=== PATIENT | female | born 1980 | race American Indian/Alaskan Native ===

== ENCOUNTER 2017-09-21 09:06 | Emergency (ER) | payer MEDICAID, OTHER ==
[2017-09-21 10:35] VITALS: BP 104/72
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
[2017-09-21] MEDS: FLEXERIL PO ONE (12:26)
[2017-09-21] MEDS: MOTRIN PO ONE (12:27)
== END 2017-09-21 13:02 | disposition home or self-care (01) ==
LOC: ED 09:06
DX: M79.1 Myalgia (principal); F17.200 Nicotine dependence, unspecified, uncomplicated; V89.0XXA Person injured in unspecified motor-vehicle accident, nontraffic, initial encounter; Y93.89 Activity, other specified; Y92.89 Other specified places as the place of occurrence of the external cause; Y99.8 Other external cause status
CPT/HCPCS: 99282

== ENCOUNTER 2017-10-26 16:56 | Emergency (ER) | payer OTHER ==
[2017-10-27] MEDS ORDERED: MOTRIN PO ONE (00:14)
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
[2017-10-27 06:04] VITALS: BP 117/76
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
== END 2017-10-27 02:45 | disposition home or self-care (01) ==
LOC: ED 16:56
DX: S63.591A Other specified sprain of right wrist, initial encounter (principal); X58.XXXA Exposure to other specified factors, initial encounter; Y93.89 Activity, other specified; Y92.89 Other specified places as the place of occurrence of the external cause; Y99.8 Other external cause status; V89.2XXA Person injured in unspecified motor-vehicle accident, traffic, initial encounter
CPT/HCPCS: 72040; 72100

== ENCOUNTER 2019-07-25 21:06 | Emergency (ER) | payer OTHER ==
[2019-07-25 21:37] VITALS: BP 117/76
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
--- NOTE | 2019-07-25 22:46 | XRay Report ---
LUMBAR SPINE 3 VIEWS. INDICATION / CLINICAL INFORMATION: low back pain COMPARISON: None available. FINDINGS: BONES / JOINT(S): No acute fracture or subluxation. No significant arthritis. SOFT TISSUES: No significant abnormality. ADDITIONAL FINDINGS: None. Signer Name: Valentino Hong MD Signed: 07/25/2019 10:42 PM Workstation Name: [id number]
[2019-07-26] MEDS ORDERED: ZOFRAN ODT PO STA (00:14)
[2019-07-26] MEDS ORDERED: PERCOCET 5/325 PO STA (00:14)
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
== END 2019-07-26 04:00 | disposition home or self-care (01) ==
LOC: ED 21:06
DX: S09.90XA Unspecified injury of head, initial encounter (principal); M79.10 Myalgia, unspecified site; M54.5 Low back pain; M54.2 Cervicalgia; E66.9 Obesity, unspecified; Z68.37 Body mass index [BMI] 37.0-37.9, adult; F17.200 Nicotine dependence, unspecified, uncomplicated; Z79.1 Long term (current) use of non-steroidal anti-inflammatories (NSAID); Z79.899 Other long term (current) drug therapy; V89.2XXA Person injured in unspecified motor-vehicle accident, traffic, initial encounter; Y93.89 Activity, other specified; Y92.488 Other paved roadways as the place of occurrence of the external cause; Y99.8 Other external cause status
CPT/HCPCS: 70450; 72100; Q0162

== ENCOUNTER 2020-06-06 06:51 | Emergency (ER) | payer SELFPAY ==
[2020-06-06 07:01] VITALS: BP 109/71
[2020-06-06] MEDS ORDERED: HYDROcodone/ACETAMINOPHEN 10-325MG TAB PO ONE (07:31)
[2020-06-06 07:42] LABS: Basophils % (Auto) 0.6 % (0.0-1.8); Eosinophils # (Auto) 0.2 K/mm3 (0.0-0.4); Eosinophils % (Auto) 1.9 % (0.0-4.3); Hematocrit 34.2 % (30.3-42.9); Hemoglobin 10.9 gm/dl (10.1-14.3); Lymphocytes % (Auto) 25.4 % (13.4-35.0); Mean Corpuscular HGB Conc 32 % (30-34); Mean Corpuscular Volume 76 fl (79-97); Monocytes # (Auto) 0.5 K/mm3 (0.0-0.8); Monocytes % (Auto) 6.7 % (0.0-7.3); Platelet Count 294 K/mm3 (140-440); Red Blood Count 4.53 M/mm3 (3.65-5.03); Red Cell Distribution Width 18.6 % (13.2-15.2)
--- NOTE | 2020-06-06 08:42 | Emergency Department Report ---
ED Abdominal Pain HPI - General Chief Complaint: Abdominal Pain Stated Complaint: LEFT SIDE/ABDOMINAL PAIN, FEELING FAINT Time Seen by Provider: 06/06/20 07:05 Source: patient Mode of arrival: Ambulatory Limitations: No Limitations - History of Present Illness Initial Comments: This is a 39-year-old female nontoxic, well nourished in appearance, no acute signs of distress presents to the ED with c/o of left flank pain with radiation to left abdomen area. Patient denies any n/v. Patient denies chest pain, short of breath, fever, hemoptysis, blood in stool, chills, headache, stiff neck, numbness or tingling. Patient denies any diarrhea or constipation. Denies any blood in stool. Patient denies any recent travels. MD Complaint: abdominal pain, flank pain -: days(s) Location: L flank Radiation: other (abdomen) Severity: moderate Severity scale (0 -10): 8 Quality: cramping, aching Consistency: constant Improves With: nothing Worsens With: nothing Associated Symptoms: denies other symptoms. denies: nausea, vomiting, diarrhea, fever, chills, constipation, dysuria, hematemesis, hematochezia, melena, hematuria, anorexia, syncope - Related Data Previous Rx's Medication Instructions Recorded Last Taken Type Cyclobenzaprine [Flexeril 10 MG 10 mg PO TID PRN #15 tablet 09/21/17 Unknown Rx TAB] Ibuprofen [Motrin 800 MG tab] 800 mg PO Q8HR PRN #30 tablet 09/21/17 Unknown Rx Cyclobenzaprine [Flexeril] 10 mg PO TID PRN #12 tablet 10/27/17 Unknown Rx Ibuprofen [Motrin] 800 mg PO Q8HR PRN #30 tablet 10/27/17 Unknown Rx Acetaminophen [Tylenol Arthritis] 650 mg PO Q6HR PRN #30 tablet.er 11/19/18 Unknown Rx Ibuprofen [Motrin] 600 mg PO Q8H PRN #30 tablet 11/19/18 Unknown Rx Ondansetron [Zofran Odt] 4 mg PO Q8HR PRN #20 tab.rapdis 11/19/18 Unknown Rx Ketorolac [Toradol] 10 mg PO Q6H PRN #15 tablet 07/26/19 Unknown Rx methOCARBAMOL [Robaxin TAB] 750 mg PO Q8H PRN #14 tablet 07/26/19 Unknown Rx traMADoL [Ultram] 50 mg PO Q6HR PRN #20 tablet 07/26/19 Unknown Rx Allergies Allergy/AdvReac Type Severity Reaction Status Date / Time No Known Allergies Allergy Verified 11/22/18 11:13 ED Review of Systems ROS: Stated complaint: LEFT SIDE/ABDOMINAL PAIN, FEELING FAINT Other details as noted in HPI Constitutional: denies: chills, fever Eyes: denies: eye pain, eye discharge, vision change ENT: denies: ear pain, throat pain Respiratory: denies: cough, shortness of breath, wheezing Cardiovascular: denies: chest pain, palpitations Endocrine: no symptoms reported Gastrointestinal: abdominal pain. denies: nausea, vomiting, diarrhea Genitourinary: denies: urgency, dysuria, discharge Musculoskeletal: denies: back pain, joint swelling, arthralgia Skin: denies: rash, lesions Neurological: denies: headache, weakness, paresthesias Psychiatric: denies: anxiety, depression Hematological/Lymphatic: denies: easy bleeding, easy bruising ED Past Medical Hx - Past Medical History Previous Medical History?: No Hx Hypertension: No Hx Congestive Heart Failure: No Hx Arthritis: No Hx Seizures: No Hx Kidney Stones: No Hx Psychiatric Treatment: No Hx Asthma: No Hx COPD: No Hx Tuberculosis: No Additional medical history: obesity - Surgical History Past Surgical History?: Yes Hx Coronary Stent: No Hx Pacemaker: No Hx Cholecystectomy: No Additional Surgical History: leep 2007 - Social History Smoking Status: Never Smoker Substance Use Type: None - Medications Home Medications: Home Medications Medication Instructions Recorded Confirmed Last Taken Type Cyclobenzaprine [Flexeril 10 MG 10 mg PO TID PRN #15 tablet 09/21/17 Unknown Rx TAB] Ibuprofen [Motrin 800 MG tab] 800 mg PO Q8HR PRN #30 tablet 09/21/17 Unknown Rx Cyclobenzaprine [Flexeril] 10 mg PO TID PRN #12 tablet 10/27/17 Unknown Rx Ibuprofen [Motrin] 800 mg PO Q8HR PRN #30 tablet 10/27/17 Unknown Rx Acetaminophen [Tylenol Arthritis] 650 mg PO Q6HR PRN #30 tablet.er 11/19/18 Unknown Rx Ibuprofen [Motrin] 600 mg PO Q8H PRN #30 tablet 11/19/18 Unknown Rx Ondansetron [Zofran Odt] 4 mg PO Q8HR PRN #20 tab.rapdis 11/19/18 Unknown Rx Ketorolac [Toradol] 10 mg PO Q6H PRN #15 tablet 07/26/19 Unknown Rx methOCARBAMOL [Robaxin TAB] 750 mg PO Q8H PRN #14 tablet 07/26/19 Unknown Rx traMADoL [Ultram] 50 mg PO Q6HR PRN #20 tablet 07/26/19 Unknown Rx ED Physical Exam - General Limitations: No Limitations General appearance: alert, in no apparent distress - Head Head exam: Present: atraumatic, normocephalic - Eye Eye exam: Present: normal appearance - Neck Neck exam: Present: normal inspection, full ROM. Absent: tenderness, meningismus, lymphadenopathy - Respiratory Respiratory exam: Present: normal lung sounds bilaterally. Absent: respiratory distress, wheezes, rales, rhonchi, stridor, chest wall tenderness, accessory muscle use, decreased breath sounds, prolonged expiratory - Cardiovascular Cardiovascular Exam: Present: regular rate, normal rhythm, normal heart sounds. Absent: bradycardia, tachycardia, irregular rhythm, systolic murmur, diastolic murmur, rubs, gallop - GI/Abdominal GI/Abdominal exam: Present: soft, normal bowel sounds. Absent: distended, tenderness, guarding, rebound, rigid, diminished bowel sounds - Extremities Exam Extremities exam: Present: normal inspection, full ROM - Back Exam Back exam: Present: normal inspection, full ROM, paraspinal tenderness (left lumbar paraspinal). Absent: tenderness, CVA tenderness (R), CVA tenderness (L), muscle spasm, vertebral tenderness, rash noted - Expanded Back Exam Expanded Back exam: Absent: saddle anesthesia Back exam: Negative Straight Leg Raising: Left, Right - Neurological Exam Neurological exam: Present: alert, oriented X3, normal gait - Psychiatric Psychiatric exam: Present: normal affect, normal mood - Skin Skin exam: Present: warm, dry, intact, normal color. Absent: rash ED Course Vital Signs 06/06/20 06:55 Temperature 98.5 F Pulse Rate 68 Respiratory 16 Rate Blood Pressure 109/71 O2 Sat by Pulse 98 Oximetry - Reevaluation(s) Reevaluation #1: 06/06/20 08:40 Patient is speaking in full sentences with no signs of distress noted. ED Medical Decision Making - Lab Data Result diagrams: 06/06/20 07:10 - Medical Decision Making 39-year-old female that presents with left flank and abdominal pain. Patient is stable and was examined by me. After patient received blood work patient was not in the room as per auto transport driver. Is at the room patient was not there. Fitter Hand has contact the patient several times with no answer or return calls to return back to emergency room. Patient eloped. I was not able to reassess the patient and perform further testing to evaluate the cause of condition. Critical care attestation.: If time is entered above; I have spent that time in minutes in the direct care of this critically ill patient, excluding procedure time. ED Disposition Clinical Impression: Flank pain Abdominal pain Qualifiers: Abdominal location: left upper quadrant Qualified Code(s): R10.12 - Left upper quadrant pain Disposition: ELOPED Is pt being admited?: No Condition: Undetermined
[2020-06-06 08:44] LABS: Alanine Aminotransferase 10 units/L (7-56); BUN/Creatinine Ratio 6; Blood Urea Nitrogen 5 mg/dL (7-17); Calcium 9.2 mg/dL (8.4-10.2); Hemolysis Index 0
== END 2020-06-06 08:10 | disposition left against medical advice (07) ==
LOC: ED 06:51
DX: R10.9 Unspecified abdominal pain (principal); Z98.890 Other specified postprocedural states; Z79.1 Long term (current) use of non-steroidal anti-inflammatories (NSAID); Z79.899 Other long term (current) drug therapy
CPT/HCPCS: 36415; 80053; 83690; 84703; 85025

== ENCOUNTER 2020-08-01 10:18 | Emergency (ER) | payer OTHER ==
[2020-08-01 10:23] VITALS: BP 120/66
[2020-08-01] MEDS ORDERED: LIDOCAINE-MPF (1%) 10 MG/1 ML VIAL 5 ML INFILTRATI ONE (11:50)
[2020-08-01] MEDS ORDERED: AZITHROMYCIN 250 MG TAB PO ONE (11:50)
--- NOTE | 2020-08-01 12:16 | Emergency Department Report ---
HPI - General Chief Complaint: Abdominal Pain Time Seen by Provider: 08/01/20 11:31 - HPI HPI: This is a 40-year-old -[place]ian female presents to the emergency department with complaint of some mild pelvic discomfort and vaginal discharge that started yesterday. The patient says that she was called by a previous partner and was told that she should get tested. She says that she hung up the phone before asking any other questions and therefore there is nothing specific that she is supposed to get tested for. She denies any past medical history, including any history of previous STD infections. She has not taken anything for symptoms prior to presentation. She denies any fever, nausea, vomiting, dysuria, vaginal bleeding. ED Past Medical Hx - Past Medical History Previous Medical History?: No Hx Hypertension: No Hx Congestive Heart Failure: No Hx Arthritis: No Hx Seizures: No Hx Kidney Stones: No Hx Psychiatric Treatment: No Hx Asthma: No Hx COPD: No Hx Tuberculosis: No Additional medical history: obesity - Surgical History Past Surgical History?: Yes Hx Coronary Stent: No Hx Pacemaker: No Hx Cholecystectomy: No Additional Surgical History: Leep 2006 - Social History Smoking Status: Never Smoker Substance Use Type: None - Medications Home Medications: Home Medications Medication Instructions Recorded Confirmed Last Taken Type Cyclobenzaprine [Flexeril 10 MG 10 mg PO TID PRN #15 tablet 09/21/17 Unknown Rx TAB] Ibuprofen [Motrin 800 MG tab] 800 mg PO Q8HR PRN #30 tablet 09/21/17 Unknown Rx Cyclobenzaprine [Flexeril] 10 mg PO TID PRN #12 tablet 10/27/17 Unknown Rx Ibuprofen [Motrin] 800 mg PO Q8HR PRN #30 tablet 10/27/17 Unknown Rx Acetaminophen [Tylenol Arthritis] 650 mg PO Q6HR PRN #30 tablet.er 11/19/18 Unknown Rx Ibuprofen [Motrin] 600 mg PO Q8H PRN #30 tablet 11/19/18 Unknown Rx Ondansetron [Zofran Odt] 4 mg PO Q8HR PRN #20 tab.rapdis 11/19/18 Unknown Rx Ketorolac [Toradol] 10 mg PO Q6H PRN #15 tablet 07/26/19 Unknown Rx methOCARBAMOL [Robaxin TAB] 750 mg PO Q8H PRN #14 tablet 07/26/19 Unknown Rx traMADoL [Ultram] 50 mg PO Q6HR PRN #20 tablet 07/26/19 Unknown Rx ED Review of Systems ROS: Stated complaint: ABD PAIN/DISCHARGE Other details as noted in HPI Comment: All other systems reviewed and negative Constitutional: denies: chills, fever Gastrointestinal: denies: abdominal pain, nausea, vomiting Genitourinary: discharge. denies: dysuria Musculoskeletal: denies: back pain, arthralgia Skin: denies: rash, lesions Physical Exam - Physical Exam Vital Signs: Vital Signs 08/01/20 10:22 Temperature 98.2 F Pulse Rate 76 Respiratory 18 Rate Blood Pressure 120/66 O2 Sat by Pulse 92 Oximetry Physical Exam: GENERAL: The patient is well-developed well-nourished. HENT: Normocephalic. Atraumatic. Patient has moist mucous membranes. EYES: Extraocular motions are intact. NECK: Supple. Trachea is midline. ABDOMEN: Abdomen is soft, nontender. Patient has normal bowel sounds. There is no abdominal distention. SKIN: Skin is warm and dry. NEURO: The patient is awake, alert, and oriented. The patient is cooperative. Normal speech. MUSCULOSKELETAL: There is no tenderness or deformity. There is no limitation range of motion. PELVIC: No obvious vaginal or labial lesions. There is a small amount of thin white discharge seen in the vagina. ED Course Vital Signs 08/01/20 10:22 Temperature 98.2 F Pulse Rate 76 Respiratory 18 Rate Blood Pressure 120/66 O2 Sat by Pulse 92 Oximetry - Reevaluation(s) Reevaluation #1: 08/01/20 13:40 Pelvic examination done with nurse Onelia at bedside for assistance and to db2 developer. ED Medical Decision Making - Medical Decision Making This patient presents to the emergency department with complaint of vaginal discharge, some mild pelvic discomfort, and a recent conversation in which she was told that she should get tested for STDs. A chaperoned pelvic examination was done that shows a mild amount of thin normal odorous discharge. Wet prep was negative for bacterial vaginosis, trichomoniasis and yeast. The patient was empirically treated for gonorrhea chlamydia and the cultures were sent out. Urinalysis was clean for urinary tract infection and the patient is not . She has good follow-up with [facility]. She will return to the ER with any worsening of her symptoms or with any acute distress. Critical Care Time: No Critical care attestation.: If time is entered above; I have spent that time in minutes in the direct care of this critically ill patient, excluding procedure time. ED Disposition Clinical Impression: Vaginal discharge Disposition: TO HOME OR SELFCARE Is pt being admited?: No Condition: Stable Additional Instructions: You were negative for bacterial vaginosis and trichomoniasis. We I testing you for gonorrhea and chlamydia but the results will not be back for 2-3 business days. Someone should be contacting you if this comes back positive, but you have already been empirically treated for it. Please follow-up with your [facility]. Return to the emergency department with any worsening of your symptoms or with any acute distress. Referrals: PRIMARY CARE, [Referring] - 2-3 Days OBGYN, Your [Other] - 2-3 Days Time of Disposition: 13:28
[2020-08-01 12:46] LABS: Bacteria,Urine 1+ /HPF (Negative); Bilirubin,Urine NEG (Negative); Blood,Urine NEG (Negative); Color,Urine Yellow (Yellow); HCG Qualitative,Urine Negative (Negative); Mucus,Urine 1+ /HPF; Protein,Urine <15 mg/dL mg/dL (Negative)
== END 2020-08-01 13:39 | disposition home or self-care (01) ==
LOC: ED 10:18
DX: N89.8 Other specified noninflammatory disorders of vagina (principal); E66.9 Obesity, unspecified; Z68.34 Body mass index [BMI] 34.0-34.9, adult; Z79.899 Other long term (current) drug therapy; Z98.890 Other specified postprocedural states
CPT/HCPCS: 81001; 81025; 87210; 87591; 96372; 99284; J0696

== ENCOUNTER 2021-09-06 12:24 | Emergency (ER) | payer OTHER ==
--- NOTE | 2021-09-06 12:50 | Emergency Department Report ---
ED ENT HPI - General Stated complaint: SORE ON THE ROOF OF MOUTH/EAR PAIN Time Seen by Provider: 09/06/21 12:45 Source: patient Mode of arrival: Ambulatory Limitations: No Limitations - History of Present Illness Initial comments: Patient is a 41-year-old female presents emergency room with complaints of a sore throat that began 3 weeks ago. she states that she also noticed a sore to the roof of her mouth approximately 2 weeks ago. She has also been complaining of left ear pain. Patient states that she needs to have all of her teeth extracted and is planning to have an appointment with a dentist. She states that she has been putting her appointment off secondary to a sore throat. She denies any fever, vomiting, diarrhea, chest pain, shortness of breath. No known sick contacts or recent travel. No past medical history. No allergies to medications. Last menstrual cycle 08/09/2021. - Related Data Previous Rx's Medication Instructions Recorded Last Taken Type Cyclobenzaprine [Flexeril 10 MG 10 mg PO TID PRN #15 tablet 09/21/17 Unknown Rx TAB] Ibuprofen [Motrin 800 MG tab] 800 mg PO Q8HR PRN #30 tablet 09/21/17 Unknown Rx Cyclobenzaprine [Flexeril] 10 mg PO TID PRN #12 tablet 10/27/17 Unknown Rx Ibuprofen [Motrin] 800 mg PO Q8HR PRN #30 tablet 10/27/17 Unknown Rx Acetaminophen [Tylenol Arthritis] 650 mg PO Q6HR PRN #30 tablet.er 11/19/18 Unknown Rx Ibuprofen [Motrin] 600 mg PO Q8H PRN #30 tablet 11/19/18 Unknown Rx Ondansetron [Zofran Odt] 4 mg PO Q8HR PRN #20 tab.rapdis 11/19/18 Unknown Rx Ketorolac [Toradol] 10 mg PO Q6H PRN #15 tablet 07/26/19 Unknown Rx methOCARBAMOL [Robaxin TAB] 750 mg PO Q8H PRN #14 tablet 07/26/19 Unknown Rx traMADoL [Ultram] 50 mg PO Q6HR PRN #20 tablet 07/26/19 Unknown Rx Nystatin [Nystatin SUSP] 10 ml PO TID 10 Days #300 ml 09/06/21 Unknown Rx Penicillin Vk [Veetids TAB] 500 mg PO QID 7 Days #56 tablet 10/08/21 Unknown Rx Allergies Allergy/AdvReac Type Severity Reaction Status Date / Time No Known Allergies Allergy Verified 11/22/18 11:13 ED Dental HPI - General Stated complaint: SORE ON THE ROOF OF MOUTH/EAR PAIN Time Seen by Provider: 09/06/21 12:45 - Related Data Previous Rx's Medication Instructions Recorded Last Taken Type Cyclobenzaprine [Flexeril 10 MG 10 mg PO TID PRN #15 tablet 09/21/17 Unknown Rx TAB] Ibuprofen [Motrin 800 MG tab] 800 mg PO Q8HR PRN #30 tablet 09/21/17 Unknown Rx Cyclobenzaprine [Flexeril] 10 mg PO TID PRN #12 tablet 10/27/17 Unknown Rx Ibuprofen [Motrin] 800 mg PO Q8HR PRN #30 tablet 10/27/17 Unknown Rx Acetaminophen [Tylenol Arthritis] 650 mg PO Q6HR PRN #30 tablet.er 11/19/18 Unknown Rx Ibuprofen [Motrin] 600 mg PO Q8H PRN #30 tablet 11/19/18 Unknown Rx Ondansetron [Zofran Odt] 4 mg PO Q8HR PRN #20 tab.rapdis 11/19/18 Unknown Rx Ketorolac [Toradol] 10 mg PO Q6H PRN #15 tablet 07/26/19 Unknown Rx methOCARBAMOL [Robaxin TAB] 750 mg PO Q8H PRN #14 tablet 07/26/19 Unknown Rx traMADoL [Ultram] 50 mg PO Q6HR PRN #20 tablet 07/26/19 Unknown Rx Nystatin [Nystatin SUSP] 10 ml PO TID 10 Days #300 ml 09/06/21 Unknown Rx Penicillin Vk [Veetids TAB] 500 mg PO QID 7 Days #56 tablet 09/06/21 Unknown Rx Allergies Allergy/AdvReac Type Severity Reaction Status Date / Time No Known Allergies Allergy Verified 11/22/18 11:13 ED Review of Systems ROS: Stated complaint: SORE ON THE ROOF OF MOUTH/EAR PAIN Other details as noted in HPI Comment: All other systems reviewed and negative ED Past Medical Hx - Past Medical History Hx Hypertension: No Hx Congestive Heart Failure: No Hx Arthritis: No Hx Seizures: No Hx Kidney Stones: No Hx Psychiatric Treatment: No Hx Asthma: No Hx COPD: No Hx Tuberculosis: No Additional medical history: obesity - Surgical History Hx Coronary Stent: No Hx Pacemaker: No Hx Cholecystectomy: No Additional Surgical History: Leep 2006 - Social History Smoking Status: Never Smoker Substance Use Type: None - Medications Home Medications: Home Medications Medication Instructions Recorded Confirmed Last Taken Type Cyclobenzaprine [Flexeril 10 MG 10 mg PO TID PRN #15 tablet 09/21/17 Unknown Rx TAB] Ibuprofen [Motrin 800 MG tab] 800 mg PO Q8HR PRN #30 tablet 09/21/17 Unknown Rx Cyclobenzaprine [Flexeril] 10 mg PO TID PRN #12 tablet 10/27/17 Unknown Rx Ibuprofen [Motrin] 800 mg PO Q8HR PRN #30 tablet 10/27/17 Unknown Rx Acetaminophen [Tylenol Arthritis] 650 mg PO Q6HR PRN #30 tablet.er 11/19/18 Unknown Rx Ibuprofen [Motrin] 600 mg PO Q8H PRN #30 tablet 11/19/18 Unknown Rx Ondansetron [Zofran Odt] 4 mg PO Q8HR PRN #20 tab.rapdis 11/19/18 Unknown Rx Ketorolac [Toradol] 10 mg PO Q6H PRN #15 tablet 07/26/19 Unknown Rx methOCARBAMOL [Robaxin TAB] 750 mg PO Q8H PRN #14 tablet 07/26/19 Unknown Rx traMADoL [Ultram] 50 mg PO Q6HR PRN #20 tablet 07/26/19 Unknown Rx Nystatin [Nystatin SUSP] 10 ml PO TID 10 Days #300 ml 09/06/21 Unknown Rx Penicillin Vk [Veetids TAB] 500 mg PO QID 7 Days #56 tablet 09/06/21 Unknown Rx ED Physical Exam - General Limitations: No Limitations General appearance: alert, in no apparent distress - Head Head exam: Present: atraumatic, normocephalic - Eye Eye exam: Present: normal appearance - ENT ENT exam: Present: mucous membranes moist, TM's normal bilaterally, normal external ear exam, other (mild posterior oropharynx erythema, no tonsillar hypertrophy or exudates, there is a 2 cm area of erythema to the hard palate, very poor dentition several missing teeth and dental decay, no obvious area of gum edema, uvula is midline, no uvular edema or deviation, no trismus, no tongue elevation) - Neck Neck exam: Present: full ROM. Absent: meningismus - Respiratory Respiratory exam: Present: normal lung sounds bilaterally. Absent: respiratory distress, wheezes, rales, rhonchi, stridor, chest wall tenderness, accessory muscle use, decreased breath sounds, prolonged expiratory - Cardiovascular Cardiovascular Exam: Present: regular rate, normal rhythm, normal heart sounds. Absent: systolic murmur, diastolic murmur, rubs, gallop - Neurological Exam Neurological exam: Present: alert, oriented X3 - Psychiatric Psychiatric exam: Present: normal affect, normal mood - Skin Skin exam: Present: warm, dry, intact ED Course Vital Signs 09/06/21 12:53 Temperature 98.9 F Pulse Rate 84 Respiratory 16 Rate Blood Pressure 134/79 [Left] O2 Sat by Pulse 98 Oximetry ED Medical Decision Making - Medical Decision Making Patient is a 41-year-old female presents emergency room with complaints of a sore throat that began 3 weeks ago. she states that she also noticed a sore to the roof of her mouth approximately 2 weeks ago. She has also been complaining of left ear pain. Patient states that she needs to have all of her teeth extracted and is planning to have an appointment with a dentist. She states th at she has been putting her appointment off secondary to a sore throat. She denies any fever, vomiting, diarrhea, chest pain, shortness of breath. No known sick contacts or recent travel. No past medical history. No allergies to medications. Last menstrual cycle 08/09/2021. Vitals are normal. On exam:mild posterior oropharynx erythema, no tonsillar hypertrophy or exudates, there is a 2 cm area of erythema to the hard palate, very poor dentition several missing teeth and dental decay, no obvious area of gum edema, uvula is midline, no uvular edema or deviation, no trismus, no tongue elevation, normal TMs and canals bilaterally. Patient has very poor dentition, will cover with penicillin VK. No obvious dental abscess at this time. There is a lesion to the hard palate, difficult to determine if this is infectious or another process, will refer to ENT for further evaluation, patient will be covered with oral nystatin. advised pt Please take medication as prescribed. Follow-up with a perfect binder feeder offbearer. Follow-up with a dentist. Return to emergency room for any new or worsening symptoms. Critical care attestation.: If time is entered above; I have spent that time in minutes in the direct care of this critically ill patient, excluding procedure time. ED Disposition Clinical Impression: Sore throat, Lesion of hard palate, Poor dentition Disposition: 01 HOME / SELF CARE / HOMELESS Is pt being admited?: No Does the pt Need Aspirin: No Condition: Stable Additional Instructions: Please take medication as prescribed. Follow-up with a perfect binder feeder offbearer. Follow-up with a dentist. Return to emergency room for any new or worsening symptoms. Prescriptions: Nystatin [Nystatin SUSP] 10 ml PO TID 10 Days #300 ml Penicillin Vk [Veetids TAB] 500 mg PO QID 7 Days #56 tablet Referrals: JOCELYN OTT MD [Staff Physician] - 3-5 Days JONATHAN KERR MD [Referring] - 3-5 Days your, dentist [Other] - 3-5 Days Time of Disposition: 12:52 Print Language: FRISIAN
[2021-09-06 12:54] VITALS: BP 134/79
== END 2021-09-06 13:26 | disposition home or self-care (01) ==
LOC: ED 12:24
DX: J02.9 Acute pharyngitis, unspecified (principal); K13.70 Unspecified lesions of oral mucosa; K08.9 Disorder of teeth and supporting structures, unspecified; E66.9 Obesity, unspecified; Z98.890 Other specified postprocedural states
CPT/HCPCS: 99281